=== PATIENT | male | born 1995 | race Caucasian/White ===

== ENCOUNTER 2022-08-22 21:56 | Observation (INO) | payer OTHER, SELFPAY ==
[2022-08-22 21:57] VITALS: BP 136/80; PULSE 86; RESP 18; TEMP 37; O2SAT 99; BMI 25.0
--- NOTE | 2022-08-22 22:35 | ED.VIS.GI ---
HPI HPI - GI History of Present Illness Chief Complaint: Abd Pain Informant: patient Abdominal Pain/Flank Pain Onset: Days (2-3) Context: Gradual Onset Timing: Waxes and wanes Quality: Aching Location: RLQ (Without radiation or migration) Current Severity: Mild Maximum Severity: Severe Worsened by: Nothing Relieved by: Nothing Nausea/Vomiting/Emesis GI Symptom: Positive for Nausea and Vomiting Onset: Today Diarrhea/Melena/Hematochezia GI Symptom: Negative for Diarrhea, Melena or Hematochezia Associated Symptoms Associated Symptoms: Negative for Dysuria, Frequency or Hematuria Narrative Narrative: Patient been having right lower quadrant pain since 2 or 3 days ago, it seemed to be either be coming and going initially or waxing and waning. It was severe today, prompting him to come to the ER, but he states now it is quieted down. He states when he urinates, he does not have dysuria or urgency/frequency, but it seems to manipulate the discomfort somehow he has a hard time explaining that. Never had this before. No recent injuries. History low back discomfort and stiffness muscular, but not changed with this discomfort. Prior similar symptoms: No Recent Illness/Hospitalization: No PFSH PFSH Medical History History of broken nose Home Medications NK 08/22/22 [History Last Taken Unknown] Allergy/AdvReac Type Severity Reaction Status Date / Time No Known Allergies Allergy Verified 08/22/22 21:57 Surgical History no surgical history no surgical history Social History Smoking Status: Current every day smoker tobacco type: cigarettes ROS ROS ED Constitutional Constitutional ED: Denies chills or fever(s) Eyes Eyes: Denies change in vision or diplopia ENT ENT ED: Denies rhinorrhea or sore throat Cardiovascular Cardiovascular: Denies chest pain or palpitations Respiratory/Chest Respiratory/Chest: Denies cough or dyspnea Gastrointestinal Gastrointestinal: Reports as per HPI, abdominal pain, nausea and vomiting; Denies diarrhea Genitourinary Genitourinary ED: Denies dysuria or hematuria Musculoskeletal Musculoskeletal: Reports back pain; Denies neck pain Integumentary Denies abscess or rash Neurologic Neurologic: Denies headache(s), paresthesias or weakness Psychiatric Psychiatric: Denies anxiety or suicidal thoughts EXAM Physical Exam Const Vital Signs: 08/22/22 21:57 Temperature 98.6 F Temperature Source Temporal Pulse Rate 86 Respiratory Rate 18 Blood Pressure 136/80 H Blood Pressure Mean 98 Pulse Ox 99 Oxygen Delivery Method Room Air Positive well nourished and well developed General Appearance ED: well developed and NAD HEENT Reports moist mucous membranes normocephalic and atraumatic Eyes PERRL and EOMs intact bilaterally Neck full ROM and supple Resp normal respiratory effort and clear to auscultation bilaterally Cardio regular rate, regular rhythm and no murmurs GI non-distended GI Narrative: Patient is moderately tender at McBurney's point in the right lower quadrant. No other areas of abdominal tenderness. Negative Rovsing, psoas, obturator signs. Negative Steiner. Auscultation: normoactive bowel sounds Palpation: soft Back/Spine no CVA tenderness General Back: other FROM Extremity normal to inspection General Extremety ED: Negative for edema, pulses abnormal or tenderness General Extremity: Negative for edema or pulses abnormal Neuro oriented x3, CN's II-XII intact bilaterally and no sensory deficits noted Sensorium / Orientation: awake and alert Motor Exam: strength 5/5 throughout Skin no rashes or lesions noted and no wounds MDM MDM MDM Narrative Medical decision making narrative: Differential mainly involving possible acute appendicitis, which exam is more concerning for, ureterolithiasis which the history is more concerning for, and/or mesenteric adenitis. CT with IV contrast warranted, this was performed in addition to urinalysis, labs. Results are noted, including a CT showing acute appendicitis nonruptured. Discussed with Dr. Bland to evaluated patient in the ED and the plan is to go to the operating room. Zosyn given. Offered analgesics, declined at this time. Lab Data Attestation: I reviewed the patient's lab results. Labs: Laboratory Results - last 24 hr 08/22/22 08/22/22 08/22/22 22:00 22:00 22:00 WBC 15.3 H RBC 5.09 Hgb 15.1 Hct 43.3 MCV 85.1 MCH 29.7 MCHC 34.9 RDW Std Deviation 38.5 RDW Coeff of Doyle 12.4 Plt Count 265 MPV 9.8 Immature Gran % (Auto) 1.000 H Neut % (Auto) 85.7 H Lymph % (Auto) 7.7 L [place] % (Auto) 5.2 Eos % (Auto) 0.2 Baso % (Auto) 0.2 Absolute Neuts (auto) 13.1 H Absolute Lymphs (auto) 1.17 Nucleated RBC % 0 Sodium 138 Potassium 3.8 Chloride 104 Carbon Dioxide 26.0 Anion Gap 8 BUN 16 Creatinine 0.92 Estim Creat Clear Calc 104.91 Est GFR (MDRD) Af Amer 127 Est GFR (MDRD) Non-Af 105 BUN/Creatinine Ratio 17.5 Glucose 125 H Calcium 9.6 Urine Color Yellow Urine Clarity Clear Urine pH 7.0 Ur Specific [place] 1.010 Urine Protein Negative Urine Glucose (UA) Normal Urine Ketones 15 H Urine Occult Blood Negative Urine Nitrite Negative Urine Bilirubin Negative Urine Urobilinogen Normal Ur Leukocyte Esterase 25 H Urine RBC 0 SEEN Urine WBC 0 SEEN Ur Squamous Epith Cells 0 SEEN Urine Bacteria 0 SEEN Urine Mucus 0 SEEN Radiography Diagnostic Testing: Clinical Impression(s) from Imaging Studies Abdomen/Pelvis CT 08/23/22 00:00 IMPRESSION: Findings are most consistent with acute appendicitis. See images 84 through 92 series 2. There is a small amount of free fluid in the pelvis. Reactive appearing right lower quadrant lymph nodes. 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 Mildly thick-walled appearance of the bladder wall could consider cystitis. Electronically Signed: Mariza Martin MD at 0:47 EDT , ADDENDUM: 08/23/22 0100 IMPRESSION: Findings are most consistent with acute appendicitis. See images 84 through 92 series 2. There is a small amount of free fluid in the pelvis. Reactive appearing right lower quadrant lymph nodes. 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 Mildly thick-walled appearance of the bladder wall could consider cystitis. N.B. : The above Results were Read Back by Mariza Martin MD to Scott Blum MD, and understanding confirmed on 08/23/2022 00:53:22 (ET). Electronically Signed: Mariza Martin MD at 0:47 EDT , Critical Care Time Critical Care Time: Yes Critical care time (excluding procedures): 30-74 minutes (32 min), Including time spent:, Discussing w/Patient &/or Family/Hospital Superintendent, Discussing w/Consultants, Arranging Admission or Transfer and Performing Direct Patient Care at Bedside Discharge Plan Triage Chief Complaint: Abd Pain Other Complaint: Nausea/Vomiting ED Provider: Scott Blum Dx/Rx/DC Orders Clinical Impression: Acute appendicitis Prescriptions: No Action NK Primary Care Provider: Jeffery Dumont Referrals: Jeffery Dumont, [Primary Care Provider] - Disposition Disposition: Acute Care Hospital [facility]
[2022-08-22 22:52] LABS: Bacteria 0 SEEN /hpf (None Seen); Mucous, Urine 0 SEEN /hpf (<or=2+); Red Blood Cells-Urine 0 SEEN /hpf (0-5); Squamous Epithelial Cells - UA 0 SEEN /hpf (0-5); White Blood Cells 0 SEEN /hpf (0-5)
[2022-08-22] MEDS: Ondansetron 4 MG/2 ML Vial IV (22:52)
[2022-08-22] MEDS: 0.9% Normal Saline 1,000 ML 1000 ML IV (22:52)
[2022-08-22 23:18] LABS: Absolute Lymphocyte Count 1.17 X10^3/uL (0.83-4.51); Absolute Neutrophil Count 13.1 X10^3/uL (2.0-7.7); Basophil# 0.03 X10^3/uL; Basophil% 0.2 % (0-1); Eosinophil# 0.03 X10^3/uL; Eosinophils% 0.2 % (0-5); Hematocrit 43.3 % (40-54); Hemoglobin 15.1 g/dL (13.0-16.5); Lymphocyte # 1.17 X10^3/ul (0.83-4.51); Lymphocyte % 7.7 % (19-41); Mean Corp Hgb Conc 34.9 g/dL (32-36); Mean Corpuscular Hgb 29.7 pg (27.0-32.0); Mean Corpuscular Volume 85.1 fL (80-94); Mean Platelet Vol. 9.8 fl (6.2-12.0); Monocyte# 0.79 X10^3/uL; Monocyte% 5.2 % (0-10); NRBC Flagged by Analyzer 0 % (0-5); Neutrophil # 13.11 X10^3/uL (2.7-7.7); Neutrophil % 85.7 % (47-70); Platelet Count 265 K/mm3 (150-450); RBC Distribution Width CV 12.4 % (11.6-14.6); RBC Distribution Width SD 38.5 fl (35.1-43.9); Red Blood Count 5.09 M/mm3 (4.6-6.2); White Blood Count 15.3 K/mm3 (4.4-11.0)
[2022-08-22 23:38] LABS: Color, Urine Yellow (Yellow); Glucose, Dipstick Normal (Normal); Ketone-Dipstick 15 mg/dl (Negative); Leukocyte Esterase-Dipstick 25 /ul (Negative); Nitrite-Dipstick Negative (Negative); Occult Blood-Urine Negative /ul (Negative); Protein-Dipstick Negative (Negative); Urine Bilirubin Dipstick Negative (Negative); Urine Clarity Clear (Clear); Urine Urobilinogen Normal (Normal)
[2022-08-22 23:55] LABS: Anion Gap 8 (5-15); BUN 16 mg/dL (7-18); BUN/Creat Ratio 17.5 RATIO (10-20); Calcium,Total 9.6 mg/dL (8.5-10.1); Chloride 104 mmol/L (98-107); Creatinine, Serum 0.92 mg/dL (0.70-1.30); EST Glomerular Filtration Rate 105 mL/min (>60); Est Glom Filt Rate - Afr Amer 127 mL/min (>60); Estimated Creatinine Clearance 104.91 ml/min; Glucose 125 mg/dL (74-106); Potassium 3.8 mmol/L (3.5-5.1); Sodium Level 138 mmol/L (136-145)
[2022-08-23] VITALS (10 sets, daily range): BP systolic 107–134; BP diastolic 58–87; PULSE 60–118; RESP 16–18; TEMP 36.7–37.1; O2SAT 97–100; BMI 25.0
--- NOTE | 2022-08-23 | CT_ITS ---
We are attempting to reach an attending provider to discuss findings. An addendum with communication details will be sent when the communication is complete. STUDY: CT ABDOMEN AND PELVIS WITH CONTRAST REASON FOR EXAM: Male, 27 years old. RLQ pain RADIATION DOSAGE (If Supplied By Facility): CTDIvol = ( 12.72 ) mGy, DLP = ( 605.12 ) mGycm TECHNIQUE: Transaxial images were obtained from the dome of the diaphragm to the symphysis pubis without oral contrast. IV 100mL Isovue-370 was administered. Sagittal and coronal images were reconstructed. Individualized dose optimization techniques were used for this CT. COMPARISON: None. FINDINGS: The visualized lung bases are unremarkable. The visualized portions of the heart are within normal limits. Normal liver. Normal gallbladder and extrahepatic biliary system. Normal spleen. Normal pancreas. Normal bilateral adrenal glands. Normal right kidney. Normal left kidney. Normal visualized stomach. Normal small intestine. There is moderate stool in the colon. There is a 6 mm radiopaque density within the descending colon that may undigested bowel contents. The width of the appendix measures up to 1.27 cm. There is minimal surrounding inflammatory change. However there is a small amount of free fluid. There are multiple small to borderline reactive lymph nodes within the right midline abdomen measuring up to 1.4 cm, image 37 series 601. Normal abdominal aorta. Normal inferior vena cava. Normal retroperitoneum. There is a thick-walled appearance of the bladder. Normal visualized prostate gland. Normal abdominal wall. There is slight anterolisthesis at the level of L4-L5. There is chronic-appearing spondylolysis. There is minimal neural foramina narrowing no significant central stenosis. CT/Abdomen/Pelvis W IV Cont ONLY IMPRESSION: Findings are most consistent with acute appendicitis. See images 84 through 92 series 2. There is a small amount of free fluid in the pelvis. Reactive appearing right lower quadrant lymph nodes. 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 Mildly thick-walled appearance of the bladder wall could consider cystitis. Electronically Signed: Mariza Martin MD at 0:47 EDT ,
--- NOTE | 2022-08-23 01:23 | PCM.HP.STD ---
HPI - General General Date of Admission: 08/23/22 Date of Service: 08/23/22 Chief Complaint: Recent onset abdominal pain associated with nausea and vomiting HPI Narrative BAR CROOKS, is a 27, otherwise healthy, M who presents to [facility] with 3-day history of lower abdominal pain that was initially waxing and waning but became constant today. Also has been intermittently associated with some nausea and vomiting. Patient does not believe there has been any associated fever. ER work-up is notable for CBC demonstrating leukocytosis and CT imaging shows a dilated appendix with some slight free fluid in the pelvis consistent with acute appendicitis. Patient has no prior abdominal surgical history, but reports anesthesia for setting of broken nose and no adverse effects. [facility] Medical History History of broken nose Home Medications NK 08/22/22 [History Last Taken Unknown] Allergy/AdvReac Type Severity Reaction Status Date / Time No Known Allergies Allergy Verified 08/22/22 21:57 Surgical History no surgical history Social History Smoking Status: Current every day smoker tobacco type: cigarettes ROS Constitutional Constitutional: Denies fever(s) Gastrointestinal Gastrointestinal: Reports abdominal pain, nausea and vomiting Genitourinary Genitourinary: Reports dysuria; Denies urinary frequency Vital Signs Vital Signs Vital Signs: 08/22/22 21:57 08/23/22 01:13 Temperature 98.6 F 98.2 F Temperature Source Temporal Temporal Pulse Rate 86 74 Respiratory Rate 18 16 Blood Pressure 136/80 H 134/87 H Blood Pressure Mean 98 102 Pulse Ox 99 99 Oxygen Delivery Method Room Air Room Air Weight Weight: 150 lb Body Mass Index (BMI) 25.0 Physical Exam Const alert, oriented x3 and no apparent distress Resp normal respiratory effort GI GI Narrative: Hirsute, no scars, nondistended. Soft, tender to palpation right lower quadrant and in suprapubic position. Positive psoas sign. Negative Rovsing's and obturator signs. Results Lab / Micro Data Result Diagrams: 08/22/22 22:00 08/22/22 22:00 Labs: Laboratory Results - last 24 hr 08/22/22 22:00: WBC 15.3 H, RBC 5.09, Hgb 15.1, Hct 43.3, MCV 85.1, MCH 29.7, MCHC 34.9, RDW Std Deviation 38.5, RDW Coeff of Doyle 12.4, Plt Count 265, MPV 9.8, Immature Gran % (Auto) 1.000 H, Neut % (Auto) 85.7 H, Lymph % (Auto) 7.7 L, [place] % (Auto) 5.2, Eos % (Auto) 0.2, Baso % (Auto) 0.2, Absolute Neuts (auto) 13.1 H, Absolute Lymphs (auto) 1.17, Nucleated RBC % 0 08/22/22 22:00: Sodium 138, Potassium 3.8, Chloride 104, Carbon Dioxide 26.0, Anion Gap 8, BUN 16, Creatinine 0.92, Estim Creat Clear Calc 104.91, Est GFR (MDRD) Af Amer 127, Est GFR (MDRD) Non-Af 105, BUN/Creatinine Ratio 17.5, Glucose 125 H, Calcium 9.6 08/22/22 22:00: Urine Color Yellow, Urine Clarity Clear, Urine pH 7.0, Ur Specific [place] 1.010, Urine Protein Negative, Urine Glucose (UA) Normal, Urine Ketones 15 H, Urine Occult Blood Negative, Urine Nitrite Negative, Urine Bilirubin Negative, Urine Urobilinogen Normal, Ur Leukocyte Esterase 25 H, Urine RBC 0 SEEN, Urine WBC 0 SEEN, Ur Squamous Epith Cells 0 SEEN, Urine Bacteria 0 SEEN, Urine Mucus 0 SEEN Radiology Impression Abdomen/Pelvis CT 08/23/22 00:00 IMPRESSION: Findings are most consistent with acute appendicitis. See images 84 through 92 series 2. There is a small amount of free fluid in the pelvis. Reactive appearing right lower quadrant lymph nodes. 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 Mildly thick-walled appearance of the bladder wall could consider cystitis. Electronically Signed: Mariza Martin MD at 0:47 EDT , ADDENDUM: 08/23/22 010 IMPRESSION: Findings are most consistent with acute appendicitis. See images 84 through 92 series 2. There is a small amount of free fluid in the pelvis. Reactive appearing right lower quadrant lymph nodes. 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 Mildly thick-walled appearance of the bladder wall could consider cystitis. N.B. : The above Results were Read Back by Mariza Martin MD to Scott Blum MD, and understanding confirmed on 08/23/2022 00:53:22 (ET). Electronically Signed: Mariza Martin MD at 0:47 EDT , Assessment & Plan Assessment/Plan (1) Acute appendicitis: PLAN: This is a 27-year-old, otherwise healthy, male who presents with signs and symptoms of acute appendicitis for starting about 3 days ago. Diagnosis is confirmed with CT imaging that shows a dilated appendix and some scant free fluid. After further confirming diagnosis with a physical exam, I have recommended proceeding to the operating room for emergent laparoscopic appendectomy. I have shared with patient and his that management will be dependent on intraoperative findings and that given his duration of symptoms and finding of free fluid, we will remain hopeful that there is no evidence of appendiceal perforation. However, if this is identified, this would mean a protracted course of antibiotics and monitoring for development of ileus. Given the current hour, patient will be admitted postoperatively at a minimum for observation. Patient expressed understanding of this information and wished to proceed as described with the operation. Charges/Coding Visit Charges Inpatient E&M: 68769 Init Hosp L2
[2022-08-23] MEDS: 0.9% Normal Saline 1,000 ML 125 ML IV ×2 (02:21→05:16)
--- NOTE | 2022-08-23 02:35 | APP_PTH ---
PATIENT: BAR CROOKS LOC: MS3 U#:[id number] AGE/SX: 27/M ROOM: [facility] [place]08/23/[address]: Dr. Jeff Bland MD : 1995 BED: 1 DIS: 08/23/2022 SPEC #: [id number] RECD: 08/23/22 07:01 STATUS: CHONG REIsabel #: [id number] JARET: 08/23/22 02:[address]: Jeff Bland DEPT: SURGICAL PATHOLOGY RECD BY: Andreia Gary ENTERED: 08/23/22 09:03 SP TYPE: APPENDIX OTHR DR: Dr. Jeffery Dumont DO Tissues: Appendix, NOS Procedures: Surgery Specimen Level III HEADER OPERATION: Laparoscopic appendectomy PRE-OP DIAGNOSIS: Acute appendicitis TISSUE SUBMITTED: Appendix MICROSCOPIC DIAGNOSIS Appendix, appendectomy: Acute appendicitis. Acute serositis. AM:edgard 08/24/2022 MICROSCOPIC DESCRIPTION Slides are reviewed. GROSS DESCRIPTION Received in fixative is one container labeled with the patient's name and designated appendix. The specimen consists of a vermiform appendix measuring 6 cm in length and 1.2 cm in average diameter. No gross perforations are evident. Serial sections reveal a patent lumen. No mass lesion is identified. Lithograph Press Operator Tinware sections are submitted in two cassettes. / AM:edgard 08/23/2022 TC:2 CPT: 28004
[2022-08-23] MEDS: Bupivacaine 0.25% 30 ML Vial (03:30)
[2022-08-23] MEDS: Lactated Ringers 1,000 ML 15 ML IV (03:30)
--- NOTE | 2022-08-23 03:38 | OP.PCM_ITS ---
Report of Operation Date of Procedure: 08/23/22 Pre-Operative Diagnosis: Acute appendicitis Post-Operative Diagnosis: Acute, uncomplicated appendicitis Surgery/Procedure Performed:: Laparoscopic appendectomy Description of Surgical Findings:: ? Diffusely dilated, mildly inflamed appendix ? Hemostatic staple line ? Otherwise normal intraperitoneal anatomy Surgeon: Jeff Bland cash analyst: None Type of Anesthesia: General/Supplemental Anesthesiologist: Mary Brantley Specimen's removed: Appendix Estimated Blood Loss (mL): 10 Description of Procedure: After appropriate identification in the preoperative holding area, the patient was brought to the operating room and placed supine on the operating room table. Antibiotics had been preoperatively administered by emergency medicine. Patient was then induced with general endotracheal anesthetic. The abdomen was prepped and draped in usual sterile fashion. Formal timeout was conducted to confirm both the patient and the procedure. A supraumbilical incision was made and carried down to the level of the fascia which was sharply opened. After opening the peritoneum in like fashion a finger sweep was made to confirm position, and a balloon trocar was placed and pneumoperitoneum was established to 15 mmHg. Patient was positioned in Trendelenburg with the left side down. 2 additional 5 mm trocars were placed in the left lower quadrant and suprapubic positions. The peritoneum was inspected and there were no signs of inadvertent injury from this Silva entry. The appendix was visualized with mild inflammation but diffusely dilated. There is no evidence of perforation but there was some simple serous fluid within the pelvis?likely reactive to the inflammatory process around the appendix. Using blunt laparoscopic dissection, a window was made in the mesoappendix adjacent to the appendiceal base. The mesoappendix was divided with application of a laparoscopic harmonic. Then the base of the appendix was sealed and amputated with the use of an Endo BONNY stapler. As I inspected the staple line, it appeared that there was still additional stump of the appendix left and so I proceeded to divide the lateral attachments to the right paracolic gutter with the harmonic scalpel and took a second pass with the stapler directly at the coalescence of the tinea. This time I was satisfied with the position of the staple line and its hemostasis. Both pieces of the appendix were placed in an Endo Catch bag. The free fluid in the pelvis was suctioned free with the use of a laparoscopic suction right of way appraiser. The staple line was again inspected for hemostasis. After hemostasis was confirmed the appendix was removed from the umbilical port site. Pneumoperitoneum was then evacuated and the supraumbilical port site fascia was closed with #1 Vicryl in a [id number] fashion. The port sites were infiltrated with 16 mL local anesthetic. The skin of each port site was closed with 4-0 Monocryl in a subcuticular fashion. Steri-Strips and OpSite dressings were applied. Patient tolerated procedure well without any apparent complications. They were awoken from general anesthetic without issue and transferred to post anesthesia care unit for ongoing recovery. Complications None Procedures Digestive [id number]: [id number] Laparoscopy appendectomy
[2022-08-23] MEDS: Ibuprofen 400 MG Tablet PO (05:16)
--- NOTE | 2022-08-23 08:36 | DCINST_ITS ---
Discharge Instructions Diet Discharge Diet: Light diet - advance as tolerated Activity Discharge Activity: May Not Drive (3- 5 days following surgery) Lifting Restrictions: 15 pounds for 2 weeks Dressing / Incision Call your doctor if your incision/area has: Continuous Slow Oozing, Sudden Increased Bleeding, Increased Pain/ Swelling, Increased Redness, Foul Smelling Discharge and Swelling at the incision site Call your doctor if you observe: Fever of 101 or Higher Suture Line Care: Avoid Pulling/Pushing and Avoid Pinching/Bending Remove Dressing in: 1 day Follow Up Care Please Follow Up With: Jeff Bland MD When: 1 week. Please contact our office at [phone] to schedule an appointment. Test Results: Test results from this visit will be discussed in further detail at your follow- up appointment, if applicable. Discharge Plan Admission Admit Date/Time: 08/23/22 01:31 Primary Reason for Your Visit: Acute appendicitis Attending Provider: Jeff Bland Primary Care Provider: Jeffery Dumont Instructions Additional Instructions / Restrictions: Recommend no lifting greater than 15 pounds for 2 weeks from surgery You may develop constipation. You may try Miralax daily if you become constipated. Follow-up in 1 week Discharge Orders/Prescriptions Prescriptions: New oxycodone 5 mg Tablet 5 mg PO Q6H PRN PRN (Reason: Pain Score 6-10) 2 Days Qty: 10 0RF Referrals / Follow Up: Jeffery Dumont DO [Primary Care Provider] - Jeff Bland MD [Med Staff - Active Staff] - (Follow-up in 1 week for post-op appointment. ) Disposition Disposition (needs filled in before D/C Order can be placed): Home, Self Care
--- NOTE | 2022-08-23 08:49 | PCM.DC.SUM ---
Providers Date of Admission: 08/23/22 Primary Care Physician: Dr. Jeffery Dumont DO Reason For Visit: APPENDICITIS Diagnosis Discharge Diagnosis (1) Acute appendicitis: Status: Acute Code(s): K35.80 - Unspecified acute appendicitis Medications at Discharge Home Medications oxycodone 5 mg tablet 5 mg PO Q6H PRN PRN Pain Score 6-10 2 days #10 tabs 08/23/22 Hospital Course Operations appendectomy Summary of Care Provided Minutes Spent on Discharge: 20 Hospital Course: Patient is a 27 y/o M who presented to the ED with approximately 3 day history of abdominal pain. CT scan demonstrated acute appendicitis. Dr. Bland performed a laparoscopic appendectomy on 08/23. Patient tolerated the procedure well. Upon discharge, patient tolerated regular diet. He noted very minimal amount of abdominal discomfort. He denies nausea, vomiting. He is urinating well. Physical Exam GI GI Narrative: Abdominal incisions intact with op-sites in place Auscultation: hypoactive bowel sounds Palpation: soft and tender other (minimal tenderness to RLQ) Weight / BMI Weight Weight: 150 lb Body Mass Index (BMI) 25.0 ABG / Lab / Microbiology Data Result Diagrams: 08/22/22 22:00 08/22/22 22:00 Laboratory: Laboratory Results - last 24 hr 08/22/22 22:00: WBC 15.3 H, RBC 5.09, Hgb 15.1, Hct 43.3, MCV 85.1, MCH 29.7, MCHC 34.9, RDW Std Deviation 38.5, RDW Coeff of [place] 12.4, Plt Count 265, MPV 9.8, Immature Gran % (Auto) 1.000 H, Neut % (Auto) 85.7 H, Lymph % (Auto) 7.7 L, [place] % (Auto) 5.2, Eos % (Auto) 0.2, Baso % (Auto) 0.2, Absolute Neuts (auto) 13.1 H, Absolute Lymphs (auto) 1.17, Nucleated RBC % 0 08/22/22 22:00: Sodium 138, Potassium 3.8, Chloride 104, Carbon Dioxide 26.0, Anion Gap 8, BUN 16, Creatinine 0.92, Estim Creat Clear Calc 104.91, Est GFR (MDRD) Af Amer 127, Est GFR (MDRD) Non-Af 105, BUN/Creatinine Ratio 17.5, Glucose 125 H, Calcium 9.6 08/22/22 22:00: Urine Color Yellow, Urine Clarity Clear, Urine pH 7.0, Ur Specific [place] 1.010, Urine Protein Negative, Urine Glucose (UA) Normal, Urine Ketones 15 H, Urine Occult Blood Negative, Urine Nitrite Negative, Urine Bilirubin Negative, Urine Urobilinogen Normal, Ur Leukocyte Esterase 25 H, Urine RBC 0 SEEN, Urine WBC 0 SEEN, Ur Squamous Epith Cells 0 SEEN, Urine Bacteria 0 SEEN, Urine Mucus 0 SEEN Radiography Diagnostic Testing: Radiology Impression Abdomen/Pelvis CT 08/23/22 00:00 IMPRESSION: Findings are most consistent with acute appendicitis. See images 84 through 92 series 2. There is a small amount of free fluid in the pelvis. Reactive appearing right lower quadrant lymph nodes. 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 Mildly thick-walled appearance of the bladder wall could consider cystitis. Electronically Signed: Mariza Martin MD at 0:47 EDT , ADDENDUM: 08/23/22 0100 IMPRESSION: Findings are most consistent with acute appendicitis. See images 84 through 92 series 2. There is a small amount of free fluid in the pelvis. Reactive appearing right lower quadrant lymph nodes. 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 Mildly thick-walled appearance of the bladder wall could consider cystitis. N.B. : The above Results were Read Back by Mariza Martin MD to Scott Blum MD, and understanding confirmed on 08/23/2022 00:53:22 (ET). Electronically Signed: Mariza Martin MD at 0:47 EDT , D/C Instructions Discharge Diet: Light diet - advance as tolerated Call your doctor if your incision/area has: Continuous Slow Oozing, Sudden Increased Bleeding, Increased Pain/ Swelling, Increased Redness, Foul Smelling Discharge and Swelling at the incision site Call your doctor if you observe: Fever of 101 or Higher Suture Line Care: Avoid Pulling/Pushing and Avoid Pinching/Bending Please Follow Up With: Jeff Bland MD When: 1 week. Please contact our office at [phone] to schedule an appointment. Meaningful Use Info Meaningful Use Diagnoses (Choose all that apply): None applicable Discharge Plan Admission Admit Date/Time: 08/23/22 01:31 Primary Reason for Your Visit: Acute appendicitis Attending Provider: Jeff Bland Primary Care Provider: Jeffery Dumont Instructions Additional Instructions / Restrictions: Recommend no lifting greater than 15 pounds for 2 weeks from surgery You may develop constipation. You may try Miralax daily if you become constipated. Follow-up in 1 week Discharge Orders/Prescriptions Prescriptions: New oxycodone 5 mg Tablet 5 mg PO Q6H PRN PRN (Reason: Pain Score 6-10) 2 Days Qty: 10 0RF Referrals / Follow Up: Jeff Bland MD [Med Staff - Active Staff] - (Follow-up in 1 week for post-op appointment. ) Jeffery Dumont DO [Primary Care Provider] - Disposition Disposition (needs filled in before D/C Order can be placed): Home, Self Care Charges/Coding Visit Charges Inpatient E&M: 66095 Disch Hosp (No charge; post-op)
== END 2022-08-23 11:39 | disposition home or self-care (01) ==
LOC: ED 08-23 01:02 → MS3 08-23 01:48
PROVIDERS: Admitting Provider Surgery; Emergency Provider Emergency Medicine; PCP Family Medicine; Visit Provider Surgery
PROC: 0DTJ4ZZ Resection of Appendix, Percutaneous Endoscopic Approach (ICD-10-PCS; CPT 44970; principal; 2022-08-23 02:15)
DX: K35.80 Unspecified acute appendicitis (principal); F17.210 Nicotine dependence, cigarettes, uncomplicated
CPT/HCPCS: 44970; 00840; 74177; 80048; 81001; 85025; 88304; 96361; 96374; 99218; 99284; 99406; J7030; J7120; Q9967; A4216; G0378; J2405